=== PATIENT | female | born 1955 | race Caucasian/White ===

== ENCOUNTER 2020-06-13 08:36 | Day surgery (SDC) | payer MEDICARE, OTHER ==
[~2020-06-13 08:36] MED LIST: Lactated Ringers 1,000 ML IV SCH; Lidocaine 1%/Sod Bicarbonate in NS 8.4% 1 ML Syringe IDERM PRN; Sodium Chloride 0.9% 10 ML Syringe FLUSH PRN
--- NOTE | 2020-06-13 10:10 | PCM.PREANE ---
Preanesthetic Assessment - Procedure Proposed Procedure: sdcreening colonoscopy - Anesthesia/Transfusion/Family Hx Anesthesia History: Prior Anesthesia Without Reaction Family History of Anesthesia Reaction: No Transfusion History: No Prior Transfusion(s) - Review of Systems General: No Symptoms Pulmonary: No Symptoms Cardiovascular: No Symptoms Gastrointestinal: No Symptoms Neurological: No Symptoms Other: Reports: Thyroid Problems, Depression - Physical Assessment NPO Status Date: 06/13/20 NPO Status Time: 04:15 Vital Signs: Last Vital Signs Temp 97.2 F 06/13/20 08:40 Pulse 87 06/13/20 08:40 Resp 16 06/13/20 08:40 BP 129/68 06/13/20 08:40 Pulse Ox 96 06/13/20 08:40 Height: 5 ft 8 in Weight: 140.614 kg ASA Class: 3 Mental Status: Alert & Oriented x3 Airway Class: Mallampati = 1 Dentition: Reports: Normal Dentition, Partial Thyro-Mental Finger Breadths: 3 Mouth Opening Finger Breadths: 3 ROM/Head Extension: Full Lungs: Clear to Auscultation, Normal Respiratory Effort Cardiovascular: Regular Rate, Regular Rhythm - Allergies Allergies/Adverse Reactions: Allergies Allergy/AdvReac Type Severity Reaction Status Date / Time codeine Allergy Hives Verified 06/12/20 12:25 - Anesthesia Plan Beta Jaswinder: Metoprolol Med Last Dose Date: 06/13/20 Med Last Dose Time: 08:00 - Acknowledgements Anesthesia Type Planned: MAC Pt an Appropriate Candidate for the Planned Anesthesia: Yes Alternatives and Risks of Anesthesia Discussed w Pt/Guardian: Yes Pt/Guardian Understands and Agrees with Anesthesia Plan: Yes PreAnesthesia Questionnaire HEENT History: Reports: Allergic Rhinitis, Impaired Vision Cardiovascular History: Reports: High Cholesterol, Hypertension, Other (See Below) Other Cardiovascular History: heart catheterization x 2 -last one 7-8 years ago Respiratory History: Reports: None Gastrointestinal History: Reports: Colon Polyp Genitourinary History: Reports: None ENGINEERING AIDE History: Reports: None Musculoskeletal History: Reports: Arthritis Neurological History: Reports: None Psychiatric History: Reports: Anxiety, Depression Endocrine/Metabolic History: Reports: Diabetes, Type II (used to have it -), Hypothyroidism, Obesity/BMI 30+, Vitamin D Deficiency Hematologic History: Reports: None Immunologic History: Reports: None Oncologic (Cancer) History: Reports: None Dermatologic History: Reports: None - Past Surgical History Head Surgeries/Procedures: Reports: None HEENT Surgical History: Reports: Oral Surgery, Tonsillectomy Cardiovascular Surgical History: Reports: None Respiratory Surgical History: Reports: None GI Surgical History: Reports: Bariatric Procedure, Colonoscopy Female Surgical History: Reports: Hysterectomy, Tubal Ligation Male Surgical History: Reports: None Endocrine Surgical History: Reports: None Neurological Surgical History: Reports: None Musculoskeletal Surgical History: Reports: None Oncologic Surgical History: Reports: None Dermatological Surgical History: Reports: None - SUBSTANCE USE Smoking Status *Q: Never Smoker Tobacco Use Within Last Twelve Months: No Second Hand Smoke Exposure: No Days Per Week of Alcohol Use: 1 Number of Drinks Per Day: 1 Total Drinks Per Week: 1 Recreational Drug Use History: No - HOME MEDS Home Medications: Home Meds Ascorbic Acid [Vitamin C] 1,000 mg PO DAILY 06/12/20 [History] Biotin 10 mg PO BID 06/12/20 [History] Cholecalciferol (Vitamin D3) [Vitamin D3] 5,000 unit PO DAILY 06/12/20 [History] Evening [place] Oil 500 mg PO DAILY 06/12/20 [History] Folic Acid 0.8 mg PO DAILY 06/12/20 [History] Levothyroxine 75 mcg PO DAILY 06/12/20 [History] Metoprolol Tartrate [Lopressor] 12.5 mg PO BID 06/12/20 [History] Multivitamin [Daily Multiple Vitamin] 1 tab PO DAILY 06/12/20 [History] Sertraline HCl [Zoloft] 100 mg PO DAILY 06/12/20 [History] Vitamin E 100 unit PO DAILY 06/12/20 [History] atorvaSTATin Calcium [Lipitor] 40 mg PO DAILY 06/12/20 [History] - CURRENT (IN HOUSE) MEDS Current Meds: Current Medications Lactated Ringer's (Ringers, Lactated) 1,000 mls @ 125 mls/hr IV ASDIRECTED GORDO Stop: 06/13/20 23:00 Last Admin: 06/13/20 08:50 Dose: 125 mls/hr Documented by: Lidocaine/Sodium Bicarbonate (Buffered Lidocaine 1% In Ns 8.4%) 0.25 ml IDERM ONETIME PRN PRN Reason: Prior to IV Start Stop: 06/13/20 18:00 Last Admin: 06/13/20 08:50 Dose: 0.25 ml Documented by: Sodium Chloride (Saline Flush) 10 ml FLUSH ASDIRECTED PRN PRN Reason: Keep Vein Open Stop: 06/13/20 18:00
[2020-06-13] MEDS ORDERED: Propofol 200 MG/20 ML SDV ONE ×5 (10:14→11:28)
[2020-06-13] MEDS ORDERED: Lidocaine 1% 4 ML ONE (10:14)
[2020-06-13] MEDS ORDERED: fentaNYL 100 MCG/2 ML SDV ONE (10:14)
[2020-06-13] MEDS ORDERED: Midazolam 1 MG/ML 2 ML SDV ONE (10:15)
[2020-06-13] MEDS ORDERED: ePHEDrine Sulfate/0.9% NaCl/Pf 25 MG/5 ML SYRINGE IV ONE (10:43)
--- NOTE | 2020-06-13 11:43 | PCM.PRNOTE ---
- Free Text/Narrative Note: Date: 06/13/2020 Procedure: screening colonoscopy Endoscopist: Bg Currie MD Findings: Ileocecal valve visualized. Prep was fair. Detailed Report: The patient was taken to the endoscopy suite and placed in left lateral decubitus position. Time out was performed and monitored anesthesia care was initiated. There were small external hemorrhoidal skin tags on inspection of the anus. Digital rectal exam was unremarkable; anal papillae were palpated. The lubricated colonoscope was then inserted and advanced all the way to the cecum. The ileocecal valve was visualized. The prep was fair, with adherent particulate matter most notable in the proximal colon. On slow withdrawal of the scope, mucosal surfaces were carefully inspected. Three small sessile polyps were identified; one just distal to the ileocecal valve and two adjacent polyps in the sigmoid colon. These were removed with hot forceps, and tissue bases were fulgurated. In the transverse colon, a larger, well circumscribed submucosal mass was noted. a sample biopsy was obtained. There was no substantial diverticular disease or internal hemorrhoidal disease noted. There were some small submucosal vascular ectasias noted throughout the colon, most prominently featured in the rectum. Air was evacuated prior to removal of the scope. The patient tolerated the procedure well.
--- NOTE | 2020-06-13 11:47 | PCM48HPAN ---
Post Anesthesia Note - EVALUATION WITHIN 48HRS OF ANESTHETIC Vital Signs in Normal Range: Yes Patient Participated in Evaluation: Yes Respiratory Function Stable: Yes Airway Patent: Yes Cardiovascular Function Stable: Yes Hydration Status Stable: Yes Pain Control Satisfactory: Yes Nausea and Vomiting Control Satisfactory: Yes Mental Status Recovered: Yes Vital Signs: Last Vital Signs Temp 97.1 F 06/13/20 11:38 Pulse 81 06/13/20 11:38 Resp 20 06/13/20 11:38 BP 96/33 L 06/13/20 11:38 Pulse Ox 97 06/13/20 11:38
== END 2020-06-13 12:18 | disposition home or self-care (01) ==
LOC: JD.SDS 08:36
PROVIDERS: ATTEND Surgery
DX: Z12.11 Encounter for screening for malignant neoplasm of colon (principal); D17.5 Benign lipomatous neoplasm of intra-abdominal organs; D12.4 Benign neoplasm of descending colon; K64.4 Residual hemorrhoidal skin tags; F41.9 Anxiety disorder, unspecified; F32.9 Major depressive disorder, single episode, unspecified; I10 Essential (primary) hypertension; E11.9 Type 2 diabetes mellitus without complications; E78.00 Pure hypercholesterolemia, unspecified; E03.9 Hypothyroidism, unspecified; E66.9 Obesity, unspecified; Z88.5 Allergy status to narcotic agent; Z79.890 Hormone replacement therapy; Z79.899 Other long term (current) drug therapy; Z86.010 Personal history of colon polyps; Z98.890 Other specified postprocedural states; Z68.42 Body mass index [BMI] 45.0-49.9, adult
CPT/HCPCS: 45384; J0171; J2001; J2250; J2704; J3010; J7120; 00812

== ENCOUNTER 2021-03-17 10:46 | Day surgery (SDC) | payer MEDICARE, OTHER ==
--- NOTE | 2021-02-27 19:53 | PCM.EKG ---
#1 Interpretation EKG Date: 02/27/21 Time: 10:36 Rhythm: NSR Rate (Beats/Min): 75 [place]: Normal P-Wave: Enlarged (Left atrial hypertrophy pattern) QRS: Other (Near Q waves in leads III and aVF felt to be due to bundle branch block pattern. Incomplete right bundle branch block pattern) QT: Normal EKG Interpretation Comments: Abnormal ECG
[~2021-03-17 10:46] MED LIST changes: +Acetaminophen/HYDROcodone 325-5 MG Tab PO PRN; +Cyclobenzaprine 10 MG Tab PO PRN; +EPINEPHrine 1 MG/ML SDV ONE; +Lidocaine 1% 4 ML ONE; +Midazolam 1 MG/ML 2 ML SDV ONE; +Propofol 200 MG/20 ML SDV ONE; +Ropivacaine 0.5% 5 MG/ML 30 ML SDV ONE; +ceFAZolin 1 GM Vial ONE
--- NOTE | 2021-03-17 11:49 | PCM.PREANE ---
Preanesthetic Assessment - Procedure Proposed Procedure: right total knee arthroplasty with left knee aspiration and steroid injection - Anesthesia/Transfusion/Family Hx Anesthesia History: Prior Anesthesia Reaction Type of Anesthesia Reaction: Excessive Somnolence (with one colonoscopy in [place] 5 years ago, has had uneventful colonocopies since ) Family History of Anesthesia Reaction: No Transfusion History: No Prior Transfusion(s) Intubation History: Unknown - Review of Systems General: No Symptoms Pulmonary: No Symptoms Cardiovascular: No Symptoms Gastrointestinal: No Symptoms Neurological: No Symptoms Other: Reports: Thyroid Problems (hypothyroidism ), Depression, Anxiety - Physical Assessment NPO Status Date: 03/16/21 NPO Status Time: 18:30 Vital Signs: Last Vital Signs Temp 36.7 C 03/17/21 10:40 Pulse 63 03/17/21 10:40 Resp 18 03/17/21 10:40 BP 141/72 H 03/17/21 11:18 Pulse Ox 98 03/17/21 10:40 Height: 1.75 m Weight: 138.1 kg ASA Class: 3 Mental Status: Alert & Oriented x3 Dentition: Reports: Missing Tooth/Teeth (1 upper, 1 lower partial not in hospital ) ROM/Head Extension: Full Lungs: Clear to Auscultation, Normal Respiratory Effort Cardiovascular: Regular Rate, Regular Rhythm - Lab Values: Laboratory Last Values MRSA (PCR) Cancelled 02/25/21 16:17 - Allergies Allergies/Adverse Reactions: Allergies Allergy/AdvReac Type Severity Reaction Status Date / Time aspirin [From Percodan] Allergy Cannot Verified 03/17/21 11:40 Remember codeine Allergy Hives Verified 03/17/21 11:40 oxycodone [From Percodan] Allergy Cannot Verified 03/17/21 11:40 Remember - Blood Blood Available: No - Acknowledgements Anesthesia Type Planned: Spinal Pt an Appropriate Candidate for the Planned Anesthesia: Yes Alternatives and Risks of Anesthesia Discussed w Pt/Guardian: Yes Pt/Guardian Understands and Agrees with Anesthesia Plan: Yes PreAnesthesia Questionnaire HEENT History: Reports: Allergic Rhinitis, Cataract, Impaired Vision Cardiovascular History: Reports: High Cholesterol, Hypertension, Other (See Below) Other Cardiovascular History: heart catheterization x 2 -last one 7-8 years ago Respiratory History: Reports: Sleep Apnea Gastrointestinal History: Reports: Colon Polyp Genitourinary History: Reports: UTI, Recurrent CMO History: Reports: None Musculoskeletal History: Reports: Arthritis Neurological History: Reports: None Psychiatric History: Reports: Anxiety, Depression Endocrine/Metabolic History: Reports: Diabetes, Type II, Hypothyroidism, Obe sity/BMI 30+, Vitamin D Deficiency Hematologic History: Reports: Anemia, Folic Acid Immunologic History: Reports: None Oncologic (Cancer) History: Reports: None Dermatologic History: Reports: None - Infectious Disease History Infectious Disease History: Reports: None - Past Surgical History Head Surgeries/Procedures: Reports: None HEENT Surgical History: Reports: Oral Surgery, Tonsillectomy Cardiovascular Surgical History: Reports: None Respiratory Surgical History: Reports: None GI Surgical History: Reports: Bariatric Procedure, Colonoscopy Female Surgical History: Reports: Hysterectomy, Tubal Ligation Male Surgical History: Reports: None Endocrine Surgical History: Reports: None Neurological Surgical History: Reports: None Musculoskeletal Surgical History: Reports: None Oncologic Surgical History: Reports: None Dermatological Surgical History: Reports: None - SUBSTANCE USE Tobacco Use Status *Q: Never Tobacco User Recreational Drug Use History: No - HOME MEDS Home Medications: Home Meds Ascorbic Acid [Vitamin C] 1,000 mg PO DAILY 06/12/20 [History] Biotin 10 mg PO BID 06/12/20 [History] Cholecalciferol (Vitamin D3) [Vitamin D3] 5,000 unit PO DAILY 06/12/20 [History] Evening [place] Oil 500 mg PO DAILY 06/12/20 [History] Folic Acid 0.8 mg PO DAILY 06/12/20 [History] Levothyroxine 75 mcg PO DAILY 06/12/20 [History] Metoprolol Tartrate [Lopressor] 12.5 mg PO DAILY 06/12/20 [History] Multivitamin [Daily Multiple Vitamin] 1 tab PO DAILY 06/12/20 [History] Sertraline HCl [Zoloft] 150 mg PO DAILY 06/12/20 [History] Vitamin E 100 unit PO DAILY 06/12/20 [History] atorvaSTATin Calcium [Lipitor] 20 mg PO DAILY 06/12/20 [History] Fluticasone Propionate [Flonase] 1 dose NASBOTH DAILY 03/14/21 [History] Melatonin 10 mg PO BEDTIME PRN 03/14/21 [History] Pyridoxine HCl (Vitamin B6) [Vitamin B-6] 250 mg PO DAILY 03/14/21 [History] Vitamin B Complex 1 cap PO DAILY 03/14/21 [History] Acetaminophen/HYDROcodone [[place] 325-5 MG] 1 - 2 tab PO Q4H PRN #40 tablet 03/17/21 [Rx] Cyclobenzaprine [Flexeril] 10 mg PO BID PRN #20 tab 03/17/21 [Rx] Rivaroxaban [Xarelto] 10 mg PO DAILY #30 tab 03/17/21 [Rx] - CURRENT (IN HOUSE) MEDS Current Meds: Current Medications Hydrocodone Bitart/Acetaminophen (Acetaminophen/Hydrocodone 325-5 Mg Tab) 1 tab PO ONETIME PRN PRN Reason: Pain Stop: 03/17/21 18:00 Morphine Sulfate 8 mg/Epinephrine HCl 0.3 mg/Cefuroxime Sodium 750 mg/Ketorolac Tromethamine 30 mg/Sodium Chloride 7.9 ml 0 mg .XX ASDIRECTED PRN PRN Reason: Pain Stop: 03/17/21 15:00 Cyclobenzaprine HCl (Cyclobenzaprine 10 Mg Tab) 10 mg PO ONETIME PRN PRN Reason: muscle spasms Stop: 03/17/21 18:00 Lactated Ringer's (Ringers, Lactated) 1,000 mls @ 125 mls/hr IV ASDIRECTED GRODO Stop: 03/17/21 23:00 Last Admin: 03/17/21 11:15 Dose: 125 mls/hr Documented by: Lidocaine/Sodium Bicarbonate (Lidocaine 1%/Sod Bicarbonate In Ns 8.4% 1 Ml Syringe) 0.25 ml IDERM ONETIME PRN PRN Reason: Prior to IV Start Stop: 03/17/21 18:00 Last Admin: 03/17/21 11:15 Dose: 0.25 ml Documented by: Sodium Chloride (Sodium Chloride 0.9% 10 Ml Syringe) 10 ml FLUSH ASDIRECTED PRN PRN Reason: Keep Vein Open Stop: 03/17/21 18:00 Discontinued Medications Cefazolin Sodium (Cefazolin 1 Gm Vial) Confirm Administered Dose 2 gm .ROUTE .STK-MED ONE Stop: 03/17/21 10:37 Epinephrine HCl (Epinephrine 1 Mg/Ml Sdv) Confirm Administered Dose 1 mg .ROUTE .STK-MED ONE Stop: 03/17/21 07:29 Lidocaine HCl (Xylocaine-Mpf 1%) Confirm Administered Dose 4 mls @ as directed .ROUTE .STK-MED ONE Stop: 03/17/21 10:34 Midazolam HCl (Midazolam 1 Mg/Ml 2 Ml Sdv) Confirm Administered Dose 2 mg .ROUTE .[facility]-MED ONE Stop: 03/17/21 10:39 Propofol (Propofol 200 Mg/20 Ml Sdv) Confirm Administered Dose 200 mg .ROUTE .[facility]-MED ONE Stop: 03/17/21 10:34 Ropivacaine (Ropivacaine 0.5% 5 Mg/Ml 30 Ml Sdv) Confirm Administered [facility] 30 [facility] Stop: 03/17/21 07:29
[2021-03-17] MEDS ORDERED: ceFAZolin 1 GM Vial ONE (13:33)
[2021-03-17] MEDS ORDERED: Ondansetron 4 MG/2 ML SDV ONE (14:05)
[2021-03-17] MEDS ORDERED: Propofol 200 MG/20 ML SDV ONE ×4 (14:08→15:23)
[2021-03-17] MEDS: Bupivacaine 0.25% 10 ML SDV ONE ×3 (14:44→15:44)
[2021-03-17] MEDS: Triamcinolone Acetonide 40 MG/ML 1 ML SDV ONE ×3 (14:44→15:44)
[2021-03-17] MEDS: Morphine 8 MG, EPINEPHrine 0.3 MG, Cefuroxime 750 MG, Ketorolac 30 MG, Sodium Chloride ... PRN ×10 (15:00→15:11)
--- NOTE | 2021-03-17 15:00 | PCM.SN.2 ---
- Free Text/Narrative Note: Right selective femoral nerve block at the adductor canal for post-procedure pain control under US guidance requested by Dr. Magdaleno. Time Out: 1610 Start: 1610 End: 1620 Chart reviewed. Consent signed. Questions answered. Appropriate monitors applied/O2 at 2LPM nasal cannula. Time out performed. Right mid-shaft femur identified with ultrasound, scanning medially of femur, the femoral artery in the adductor canal visualized, and the femoral nerve located laterally to the artery. The skin was prepped lateral to the ultrasound probe with chlorahexadine times one. The 21ga 4 insulated block needle was inserted under direct ultrasound guidance into the adductor canal. 20mL of 0.5% ropivacaine with 1:200,000 epinephrine was injected circumferentially around the nerve with intermittent negative aspiration noted. Patient tolerated the procedure well. Sterile technique noted along with sterile gloves, mask, and sterile probe cover. See picture on progress note and vital signs on nurses notes. Block completed in PACU. Thank you, Jennifer Lynch CRNA
[2021-03-17] MEDS: Vancomycin 1 GM SDV ONE ×2 (15:02→15:20)
[2021-03-17] MEDS ORDERED: Lactated Ringers 1,000 ML ONE (15:25)
[2021-03-17] MEDS ORDERED: Ondansetron 4 MG/2 ML SDV IVPUSH PRN (15:51)
[2021-03-17] MEDS ORDERED: ePHEDrine 50 MG/ML SDV IVPUSH PRN (15:51)
[2021-03-17] MEDS ORDERED: diphenhydrAMINE 50 MG/ML SDV IVPUSH PRN (15:51)
[2021-03-17] MEDS ORDERED: fentaNYL 100 MCG/2 ML SDV IVPUSH PRN (15:51)
[2021-03-17] MEDS ORDERED: HYDROmorphone 0.5 MG/0.5 ML Syringe IVPUSH PRN (15:51)
--- NOTE | 2021-03-17 16:08 | PCM.POSTAN ---
POST ANESTHESIA ASSESSMENT - MENTAL STATUS Mental Status: Alert - VITAL SIGNS Vital Signs: Last Vital Signs Temp 36.7 C 03/17/21 16:00 Pulse 59 L 03/17/21 16:00 Resp 16 03/17/21 16:00 BP 105/52 L 03/17/21 16:00 Pulse Ox 99 03/17/21 16:00 - RESPIRATORY Respiratory Status: Respiratory Rate WNL, Airway Patent, O2 Saturation Stable, Supplemental Oxygen - CARDIOVASCULAR CV Status: Pulse Rate WNL, Blood Pressure Stable - GASTROINTESTINAL GI Status: No Symptoms - POST OP HYDRATION Hydration Status: Adequate & Stable
--- NOTE | 2021-03-17 16:43 | PCM48HPAN ---
Post Anesthesia Note - EVALUATION WITHIN 48HRS OF ANESTHETIC Vital Signs in Normal Range: Yes Patient Participated in Evaluation: Yes Respiratory Function Stable: Yes Airway Patent: Yes Cardiovascular Function Stable: Yes Hydration Status Stable: Yes Pain Control Satisfactory: Yes Nausea and Vomiting Control Satisfactory: Yes Mental Status Recovered: Yes Vital Signs: Last Vital Signs Temp 36.7 C 03/17/21 16:30 Pulse 50 L 03/17/21 16:30 Resp 15 03/17/21 16:30 BP 118/58 L 03/17/21 16:30 Pulse Ox 100 03/17/21 16:35
[2021-03-17] MEDS ORDERED: Cyclobenzaprine 10 MG Tab PO PRN (16:49)
[2021-03-17] MEDS ORDERED: Acetaminophen/HYDROcodone 325-5 MG Tab PO PRN (16:49)
--- NOTE | 2021-03-17 17:47 | CR ---
Right knee: AP and crosstable lateral views of the right knee were obtained. Comparison: Prior right knee CT study of 02/25/21. Knee prosthesis is noted. Components are aligned. Patellar prosthesis is also seen. Soft tissue air is noted. Underlying bony structures are intact. Impression: 1. Satisfactory postop radiographic appearance of recently placed right knee prosthesis. Diagnostic code #2
[2021-03-17] MEDS ORDERED: ceFAZolin 2 GM in Premix Bag 1 BAG IV SCH (22:00)
[2021-03-18] MEDS ORDERED: Levothyroxine 75 MCG Tab PO SCH (06:00)
[2021-03-18] MEDS ORDERED: Sertraline 50 MG Tab PO SCH (09:00)
[2021-03-18] MEDS ORDERED: atorvaSTATin 20 MG Tab PO SCH (09:00)
[2021-03-18] MEDS ORDERED: Cholecalciferol (Vitamin D3) 5,000 UNIT Cap PO SCH (09:00)
[2021-03-18] MEDS ORDERED: Metoprolol Tartrate 25 MG Tab PO SCH (09:00)
[2021-03-18] MEDS ORDERED: Folic Acid 1 MG Tab PO SCH (09:00)
[2021-03-18] MEDS ORDERED: Non-Formulary Medication 1 Each (Fluticasone Propionate [Flonase] 16 GM Bottle) NASBOTH SCH (09:00)
--- NOTE | 2021-03-30 21:54 | PCM.OPNOTE ---
- General Post-Op/Procedure Note Date of Surgery/Procedure: 03/17/21 Operative Procedure(s): right total knee arthroplasty with tanesha ramesh robotics and left knee corticosteroid injection Pre Op Diagnosis: bilateral knee osteoarthrosis Post-Op Diagnosis: Same Anesthesia Technique: Local, MAC, Spinal Primary Surgeon: Guevara Magdaleno Anesthesia Provider: Dinora Walden Case Supervisor: Fannie Zhou Case Supervisor: Jolie Perkins EBL in mLs: 5 Complications: None Condition: Good Free Text/Narrative:: 03/19 9mm 29x9
--- NOTE | 2021-03-30 23:24 | OR ---
DATE OF OPERATION: 03/17/2021 SURGEON: Guevara Magdaleno MD OPERATION PERFORMED: Right total knee arthroplasty with [place] Rito robotics and left knee corticosteroid injection. PREOPERATIVE DIAGNOSIS: Bilateral knee osteoarthrosis. POSTOPERATIVE DIAGNOSIS: Bilateral knee osteoarthrosis. ANESTHESIA: Local MAC with spinal. ANESTHESIA PROVIDER: Dinora Walden. CONVEX GRINDER: Fannie Zhou PA-C and Jolie Perkins LPN. ESTIMATED BLOOD LOSS: 5 mL. COMPLICATIONS: None. CONDITION: Stable. IMPLANT: 1. Karthikeyan size 5 cemented PS femur. 2. Karthikeyan size 5 cemented Tiff tibial baseplate. 3. [place] size 5 9 mm PS X3 polyethylene. 4. [place] size 29 x 9 mm cemented asymmetric patella. DESCRIPTION OF PROCEDURE: The patient was identified in the preoperative holding area. Proper site was marked and identified by the surgeon. The patient was taken back to the operating theater where after adequate anesthesia, the patient's right lower extremity had a nonsterile tourniquet applied and then sterilely prepped and draped in the usual sterile fashion. OR time-out was performed. Patient received 2 g of IV Ancef. Leg gabriel boot was then applied to the right lower extremity. It was then exsanguinated. Tourniquet was insufflated to 250 mmHg. Standard anterior incision was made and medial parapatellar arthrotomy was created. Deep fibers of the MCL were raised and anterior fat pad was resected. At this time, attention was turned to the patella. Patella measured 22, resected to a 13 for 29 x 9 mm patella. Drill holes were then drilled. Two 4-0 pins were then placed intra-incisionally for the [place] Rito robotic array on the femur and then 2 more placed in the tibia 3 fingerbreadths below the tibial tubercle. Karthikeyan Rito robotic array as well as checkpoints were applied. Hip center rotation was obtained. Medial and lateral malleoli were marked. At this time, 40 points were obtained off both femur and the tibia for the [place] Rito robotic plan. The patient's knee was brought to full extension. Varus and valgus stresses were applied and then 90 degrees flexion, again stresses were applied. [place] Rito robotic plan was made for this patient for 20 mm in both flexion and extension gaps secondary to flexion contracture. At this time, Karthikeyan Rito robotic straight saw blade was brought in, tibial cut, anterior femoral cut, anterior chamfer cut, and posterior femoral cut were all completed. Saw blade was then switched and the distal femoral cut and posterior chamfer cut were completed. All bony prominences were removed. Box cut was then completed at this time. Trial implants were placed. The patient had full extension and flexion. No varus-valgus instability was noted. No liftoff or loosening. Patella was tracking centrally. At this time, the tibia was stamped and drilled in proper rotation. Please note that the medial and lateral menisci were resected before this, as well as a large amount of posterior osteophytes. Once the trial implants were removed, all cut surfaces were irrigated with pulse lavage irrigation with Ancef and completely dried. Cement was mixed on the back table and when that was ready, the size 5 Tiff tibial baseplate was cemented in place, size [address], 9 mm PS X3 polyethylene was placed. The patient's knee was brought to full extension, excess cement was removed, and a 29 x 9 mm patella was cemented in place. The Advise Onlyo robotic array's checkpoints and pins were removed at this time as well. 1 L of pulse lavage irrigation with Ancef was irrigated through the knee along with 400 mL IrriSept irrigation. Periarticular injection was completed. Topical tranexamic acid and vancomycin powder were applied. A #2 barbed suture was used for closure of the medial parapatellar arthrotomy. 2-0 Vicryl and Stratafix were used for subcutaneous closure, and Prineo was used for skin closure. The patient tolerated the procedure well and was sent to the PACU in stable condition. Please note that after this procedure was completed under sterile technique, 2 mL of 40 mg Kenalog and 4 mL of 0.25% Marcaine were injected in the patient's left knee and she tolerated all procedures well. MMODAL /[id number]
== END 2021-03-17 22:05 | disposition home or self-care (01) ==
LOC: JD.SDS 10:46 → JD.MS 17:49 → JD.SDS 22:05
PROVIDERS: ATTEND Orthopaedic Surgery
DX: M17.0 Bilateral primary osteoarthritis of knee (principal); I10 Essential (primary) hypertension; E03.9 Hypothyroidism, unspecified; D75.89 Other specified diseases of blood and blood-forming organs; E66.9 Obesity, unspecified; E55.9 Vitamin D deficiency, unspecified; E11.9 Type 2 diabetes mellitus without complications; N39.0 Urinary tract infection, site not specified; G89.18 Other acute postprocedural pain; E78.00 Pure hypercholesterolemia, unspecified; Z98.890 Other specified postprocedural states; Z88.5 Allergy status to narcotic agent; Z88.8 Allergy status to other drugs, medicaments and biological substances; Z79.899 Other long term (current) drug therapy; Z68.42 Body mass index [BMI] 45.0-49.9, adult; Z79.890 Hormone replacement therapy
CPT/HCPCS: 20610; 27447; 73560; C1713; C1776; J0171; J0690; J0697; J1885; J2250; J2270; J2405; J2704; J2795; J3301; J3370; J3490; J7120; 01402; 64450; 76942; 87641

== ENCOUNTER 2021-06-23 11:45 | Emergency (ER) | payer MEDICARE, OTHER ==
[2021-06-23] MEDS ORDERED: Alum Hydrox/Mag Hydrox/Simeth 30 ML, Lidocaine 2% 15 ML PO ONE ×2 (12:15)
[2021-06-23] MEDS: Sodium Chloride 0.9% 10 ML Syringe FLUSH PRN ×2 (12:28→13:40)
--- NOTE | 2021-06-23 12:48 | EDM.PDOC ---
ED HPI GENERAL MEDICAL PROBLEM - General Chief Complaint: Chest Pain Stated Complaint: CHEST PAIN /SOB Time Seen by Provider: 06/23/21 11:47 Source of Information: Reports: Patient History Limitations: Reports: No Limitations - History of Present Illness INITIAL COMMENTS - FREE TEXT/NARRATIVE: 66-year-old female presents the emergency department today with complaints of chest pressure and throat tightening. Patient states that yesterday morning she woke with a headache which is unusual for her. She states that she relate around most of the morning and then decided to take a nap in the afternoon to see if the headache would go away. She states she woke from her nap in time for supper as she had not eaten or drank anything all day. She states when she woke she ate and drank and then felt better and states that headache resolved. She states that about 3 AM this morning when she was watching TV, she developed chest pressure and burning noted in her throat. She states that it felt like her throat was closing off. She states she was finally able to fall asleep about 5 AM this morning as the symptoms slightly resolved. She states that she then woke at about 8 AM this morning and felt better laid in bed till about 9 AM. She states she had not eaten or drank any breakfast and then went to the post office where she states she suddenly became flushed and dizzy. She states that she then went to her car and ate a bit of something and felt better and then returned home. Her daughter then told her that she needed to go to the emergency department to be evaluated. Of note, the patient states that she did have gastric bypass surgery about 4 years ago. She does have a history of hypertension, high cholesterol and hypothyroidism. She states that she does have a history of reflux however since she had her bypass surgery she has not had issues with it. She states that she becomes shortness of breath with any exertion such as walking across the parking lot to get to the emergency department this morning. She states that when she rests it resolves. Of note she is obese with a BMI of 47.1. Upper Chest Pain Score (Numeric/FACES): 8 - Related Data Allergies Allergy/AdvReac Type Severity Reaction Status Date / Time aspirin [From Percodan] Allergy Cannot Verified 06/23/21 12:16 Remember codeine Allergy Hives Verified 06/23/21 12:16 oxycodone [From Percodan] Allergy Cannot Verified 06/23/21 12:16 Remember Home Meds: Home Meds Ascorbic Acid [Vitamin C] 1,000 mg PO DAILY 06/12/20 [History] Biotin 10 mg PO BID 06/12/20 [History] Cholecalciferol (Vitamin D3) [Vitamin D3] 5,000 unit PO DAILY 06/12/20 [History] Evening [place] Oil 500 mg PO DAILY 06/12/20 [History] Folic Acid 0.8 mg PO DAILY 06/12/20 [History] Levothyroxine 75 mcg PO DAILY 06/12/20 [History] Metoprolol Tartrate [Lopressor] 12.5 mg PO DAILY 06/12/20 [History] Multivitamin [Daily Multiple Vitamin] 1 tab PO DAILY 06/12/20 [History] Sertraline HCl [Zoloft] 150 mg PO DAILY 06/12/20 [History] Vitamin E 100 unit PO DAILY 06/12/20 [History] atorvaSTATin Calcium [Lipitor] 20 mg PO DAILY 06/12/20 [History] Fluticasone Propionate [Flonase] 1 dose NASBOTH DAILY 03/14/21 [History] Melatonin 10 mg PO BEDTIME PRN 03/14/21 [History] Pyridoxine HCl (Vitamin B6) [Vitamin B-6] 250 mg PO DAILY 03/14/21 [History] Vitamin B Complex 1 cap PO DAILY 03/14/21 [History] Acetaminophen/HYDROcodone [[place] 325-5 MG] 1 - 2 tab PO Q4H PRN #40 tablet 03/17/21 [Rx] Cyclobenzaprine [Flexeril] 10 mg PO BID PRN #20 tab 03/17/21 [Rx] Rivaroxaban [Xarelto] 10 mg PO DAILY #30 tab 03/17/21 [Rx] Past Medical History HEENT History: Reports: Allergic Rhinitis, Cataract, Impaired Vision Cardiovascular History: Reports: High Cholesterol, Hypertension, Other (See Below) Other Cardiovascular History: heart catheterization x 2 -last one 7-8 years ago Respiratory History: Reports: Sleep Apnea Gastrointestinal History: Reports: Colon Polyp Genitourinary History: Reports: UTI, Recurrent ENTERPRISE APPLICATIONS MANAGER History: Reports: None Musculoskeletal History: Reports: Arthritis Neurological History: Reports: None Psychiatric History: Reports: Anxiety, Depression Endocrine/Metabolic History: Reports: Diabetes, Type II, Hypothyroidism, Obesity/BMI 30+, Vitamin D Deficiency Hematologic History: Reports: Anemia, Folic Acid Immunologic History: Reports: None Oncologic (Cancer) History: Reports: None Dermatologic History: Reports: None - Infectious Disease History Infectious Disease History: Reports: None - Past Surgical History Head Surgeries/Procedures: Reports: None HEENT Surgical History: Reports: Oral Surgery, Tonsillectomy Cardiovascular Surgical History: Reports: None Respiratory Surgical History: Reports: None GI Surgical History: Reports: Bariatric Procedure, Colonoscopy Female Surgical History: Reports: Hysterectomy, Tubal Ligation Endocrine Surgical History: Reports: None Neurological Surgical History: Reports: None Musculoskeletal Surgical History: Reports: None Oncologic Surgical History: Reports: None Dermatological Surgical History: Reports: None Social & Family History - Tobacco Use Tobacco Use Status *Q: Never Tobacco User - Caffeine Use Caffeine Use: Reports: Coffee, Tea - Recreational Drug Use Recreational Drug Use: No ED ROS GENERAL - Review of Systems Review Of Systems: Comprehensive ROS is negative, except as noted in HPI. ED EXAM, GENERAL - Physical Exam Exam: See Below Exam Limited By: No Limitations General Appearance: Alert, WD/WN, No Apparent Distress Ears: Normal External Exam, Hearing Grossly Normal Nose: Normal Inspection Throat/Mouth: Normal Inspection, Normal Lips, Normal Voice, No Airway Compromise Head: Atraumatic Neck: Normal Inspection, Supple Respiratory/Chest: No Respiratory Distress, Lungs Clear, No Accessory Muscle Use, Chest Non-Tender. No: Normal Breath Sounds (Decreased due to body habitus) Cardiovascular: Normal Peripheral Pulses, Regular Rate, Rhythm, No Edema, No Murmur Peripheral Pulses: 2+: Radial (L), Radial (R) GI/Abdominal: Normal Bowel Sounds, Soft, Non-Tender, No Distention (Female) Exam: Deferred Rectal (Female) Exam: Deferred Back Exam: Normal Inspection Extremities: Normal Inspection, Normal Range of Motion, Non-Tender, No Pedal Edema, Normal Capillary Refill Neurological: Alert, Oriented, Normal Cognition Psychiatric: Normal Affect, Normal Mood Skin Exam: Warm, Dry, Intact, Normal Color, No Rash Lymphatic: No Adenopathy #1 Interpretation EKG Date: 06/23/21 Time: 11:53 Rhythm: NSR Rate (Beats/Min): 91 [place]: Normal P-Wave: Present QRS: RBBB ST-T: Normal QT: Normal EKG Interpretation Comments: Per Dr. Choe interpretation: Sinus rhythm at 91 bpm, right bundle branch block, ST depression in the precordial leads with inverted T's isoelectric on V6 Course - Vital Signs Text/Narrative:: As stated above, patient with new onset chest pressure with feeling as though her throat is burning and closing off. She states this started at about 3 AM this morning and then resolved a couple hours later. However she did have an episode of diaphoresis and shortness of breath when at the post office today. Upon assessment the patient is awake alert and in no distress. She denies any chest pressure or burning at this time. However at the time of my assessment when having her take a deep breath she states that her throat is burning. I have ordered a full cardiac work-up on the patient to include labs, portable chest x-ray and an EKG. I will also give her a GI cocktail to see if this helps to resolve her discomfort. Last Recorded V/S: Last Vital Signs Temp 98.5 F 06/23/21 11:48 Pulse 74 06/23/21 13:46 Resp 16 06/23/21 13:46 BP 114/75 06/23/21 13:46 Pulse Ox 94 L 06/23/21 13:46 - Orders/Labs/Meds Orders: Active Orders 24 hr Category Date Time Status EKG Documentation Completion [RC] STAT Care 06/23/21 12:17 Active Sodium Chloride 0.9% [Normal Saline] 100 ml Med 06/23/21 13:30 Active IV ASDIRECTED Sodium Chloride 0.9% [Saline Flush] Med 06/23/21 12:15 Active 10 ml FLUSH ASDIRECTED PRN Saline Lock Insert [OM.PC] Stat Oth 06/23/21 12:15 Ordered Medication Orders Sodium Chloride (Normal Saline) 100 mls @ 50 mls/hr IV ASDIRECTED GORDO Last Admin: 06/23/21 13:41 Dose: 50 mls/hr Documented by: MAR Sodium Chloride (Sodium Chloride 0.9% 10 Ml Syringe) 10 ml FLUSH ASDIRECTED PRN PRN Reason: Keep Vein Open Last Admin: 06/23/21 13:40 Dose: 10 ml Documented by: Admin: 06/23/21 12:28 Dose: 10 ml Documented by: ELI Labs: Laboratory Tests 0806/23/21 06/23/21 Range/Units 12:00 12:00 12:00 WBC 6.04 (3.98-10.04) K/mm3 RBC 4.48 (3.98-5.22) M/mm3 Hgb 14.3 (11.2-15.7) gm/dl Hct 44.0 (34.1-44.9) % MCV 98.2 H (79.4-94.8) fl MCH 31.9 (25.6-32.2) pg MCHC 32.5 (32.2-35.5) g/dl RDW Std Deviation 45.3 (36.4-46.3) fL Plt Count 165 L (182-369) K/mm3 MPV 11.7 (9.4-12.3) fl Neut % (Auto) 72.9 H (34.0-71.1) % Lymph % (Auto) 19.0 L (19.3-51.7) % [place] % (Auto) 5.8 (4.7-12.5) % Eos % (Auto) 1.8 (0.7-5.8) Baso % (Auto) 0.3 (0.1-1.2) % Neut # (Auto) 4.40 (1.56-6.13) K/mm3 Lymph # (Auto) 1.15 L (1.18-3.74) K/mm3 [place]hing # (Auto) 0.35 (0.24-0.36) K/mm3 Eos # (Auto) 0.11 (0.04-0.36) K/mm3 Baso # (Auto) 0.02 (0.01-0.08) K/mm3 D-Dimer, Quantitative 1.06 H (0.19-0.50) mg/L Sodium 141 (136-145) mEq/L Potassium 3.8 (3.5-5.1) mEq/L Chloride 104 (98-107) mEq/L Carbon Dioxide 27 (21-32) mEq/L Anion Gap 13.8 (5-15) BUN 16 (7-18) mg/dL Creatinine 0.9 (0.55-1.02) mg/dL Est Cr Clr Drug Dosing 60.60 mL/min Estimated GFR (MDRD) > 60 (>60) mL/min BUN/Creatinine Ratio 17.8 (14-18) Glucose 185 H (70-99) mg/dL Calcium 8.3 L (8.5-10.1) mg/dL Magnesium 1.7 L (1.8-2.4) mg/dL Total Bilirubin 0.6 (0.2-1.0) mg/dL AST 31 (15-37) U/L ALT 37 (14-59) U/L Alkaline Phosphatase 109 (46-116) U/L Troponin I < 0.017 (0.00-0.056) ng/mL C-Reactive Protein 0.5 (<1.0) mg/dL Total Protein 6.7 (6.4-8.2) g/dl Albumin 3.3 L (3.4-5.0) g/dl Globulin 3.4 gm/dL Albumin/Globulin Ratio 1.0 (1-2) TSH 3rd Generation 2.596 (0.358-3.74) uIU/mL Meds: Medications Generic Name Dose Route Start Last Admin Trade Name Russel PRN Reason Stop Dose Admin Sodium Chloride 100 mls @ 50 mls/hr 06/23/21 13:30 06/23/21 13:41 Normal Saline IV 50 mls/hr ASDIRECTED GORDO Administration Sodium Chloride 10 ml 06/23/21 12:15 06/23/21 13:40 Sodium Chloride 0.9% 10 Ml Syringe FLUSH 10 ml ASDIRECTED PRN Administration Keep Vein Open Discontinued Medications Generic Name Dose Route Start Last Admin Trade Name Russel PRN Reason Stop Dose Admin Al Hydroxide/Mg Hydroxide 30 0 ml 06/23/21 12:15 06/23/21 12:28 ml/ Lidocaine HCl 15 ml PO 06/23/21 12:16 45 ml ONETIME ONE Administration Iopamidol 100 ml 06/23/21 13:28 06/23/21 13:40 Iopamidol 755 Mg/Ml 100 Ml Bottle IVPUSH 06/23/21 13:29 100 ml ONETIME ONE Administration Iopamidol 50 ml 06/23/21 13:28 06/23/21 13:40 Iopamidol 755 Mg/Ml 50 Ml Bottle IVPUSH 06/23/21 13:29 50 ml ONETIME ONE Administration Sodium Chloride 10 ml 06/23/21 13:28 Sodium Chloride 0.9% 10 Ml Sdv FLUSH 06/23/21 13:29 ONETIME ONE - Re-Assessments/Exams Free Text/Narrative Re-Assessment/Exam: 06/23/21 13:36 Hematology reveals a WBC of 6.04, hemoglobin 14.3, hematocrit 44.0, platelet count 165 D-dimer 1.06 Chemistry reveals a sodium of 141, potassium 3.8, chloride 104, carbon dioxide 27, anion gap 13.8, BUN 16, creatinine 0.9, GFR greater than 60, glucose 185, calcium 8.3, magnesium 1.7, troponin less than 0.017, C-reactive protein 0.5, TSH 2.596 Due to the patient having new onset shortness of breath and diaphoresis and having an elevated D-dimer, have elected to order a CTA of the lungs on the patient. 06/23/21 13:42 Radiologist impression portable view of the chest: 1. Nothing acute is seen on portable chest x-ray. 06/23/21 14:[address] Chest: 1. No findings of pulmonary embolism are seen. 2. Other non acute findings are seen. Pt states that the GI coctail did not really have an effect of the discomfort, however she states that it has resolved at the time of my reassessment. Pt will be discharged to home with recommendations that she follow up with Dr. Lindsay at her next available appt. Departure - Departure Time of Disposition: 14:43 Disposition: Home, Self-Care 01 Condition: Good Clinical Impression: Atypical chest pain Instructions: Nonspecific Chest Pain, Adult, [id number] Referrals: Katelynn Lindsay MD [Primary Care Provider] - Forms: ED Department Discharge Additional Instructions: You were seen in the ED with complaints of chest pressure and the sensation that your throat is closing. Full cardiac workup was completed which included, labs, EKG, and a chest xray. Labs showed an elevated ddimer which could indicate a blood clot in your lungs so a CT scan of the lungs was completed. This was negative. You did not have a heart attack and you do not have a blood clot in your lungs. Recommend that you follow up with Dr. Lindsay in the next week for further evaluation. Should your condition worsen or change, do not hesitate returning to the ED. Sepsis Event Note (ED) - Evaluation Sepsis Screening Result: No Definite Risk - Focused Exam Vital Signs: Vital Signs Temp Pulse Resp BP Pulse Ox 06/23/21 13:46 74 16 114/75 94 L 06/23/21 11:48 98.5 F 83 16 123/77 98 - My Orders Last 24 Hours: My Active Orders 06/23/21 12:15 Sodium Chloride 0.9% [Saline Flush] 10 ml FLUSH ASDIRECTED PRN Saline Lock Insert [OM.PC] Stat 06/23/21 12:17 EKG Documentation Completion [RC] STAT 06/23/21 13:30 Sodium Chloride 0.9% [Normal Saline] 100 ml IV ASDIRECTED - Assessment/Plan Last 24 Hours: My Active Orders 06/23/21 12:15 Sodium Chloride 0.9% [Saline Flush] 10 ml FLUSH ASDIRECTED PRN Saline Lock Insert [OM.PC] Stat 06/23/21 12:17 EKG Documentation Completion [RC] STAT 06/23/21 13:30 Sodium Chloride 0.9% [Normal Saline] 100 ml IV ASDIRECTED
[2021-06-23] MEDS ORDERED: Sodium Chloride 0.9% 10 ML SDV FLUSH ONE (13:28)
[2021-06-23] MEDS ORDERED: Iopamidol 755 Mg/ML 100 ML Bottle IVPUSH ONE (13:28)
[2021-06-23] MEDS ORDERED: Iopamidol 755 MG/ML 50 ML Bottle IVPUSH ONE (13:28)
[2021-06-23] MEDS ORDERED: Sodium Chloride 0.9% 100 ML IV SCH (13:30)
--- NOTE | 2021-06-23 13:36 | CR ---
Chest: Portable view of the chest was obtained. Comparison: No prior chest imaging is available. Heart size is normal. Tortuous thoracic aorta is seen. Lungs are clear with no acute parenchymal change. No definite acute osseous abnormality is appreciated. Impression: 1. Nothing acute is seen on portable chest x-ray. Diagnostic code #1
--- NOTE | 2021-06-23 14:13 | CT ---
CT chest Technique: Multiple axial sections were obtained from above the dome of the diaphragm inferiorly through the pubic symphysis. Intravenous contrast was utilized. Study has been performed as a pulmonary angiogram protocol. Findings: Pulmonary arteries are fairly well opacified. No filling defects are seen to indicate pulmonary embolism. Thoracic aorta shows no aneurysm. Mild coronary artery calcification is seen. Mediastinum shows no adenopathy. No axillary adenopathy is seen. No pericardial thickening is seen. Large gallstone is seen within the gallbladder measuring 3.7 cm. Lungs show no definite acute parenchymal change. Small lobulation of the left hemidiaphragm is seen. Bone window settings were reviewed which show slight degenerative change scattered throughout the spine. No definite acute osseous abnormality is appreciated. Impression: 1. No findings of pulmonary embolism are seen. 2. Other findings which are nonacute as described above. Diagnostic code #2
== END 2021-06-23 14:58 | disposition home or self-care (01) ==
LOC: JD.ED 11:45
DX: R07.89 Other chest pain (principal); E78.00 Pure hypercholesterolemia, unspecified; I10 Essential (primary) hypertension; E11.9 Type 2 diabetes mellitus without complications; E03.9 Hypothyroidism, unspecified; E66.9 Obesity, unspecified; Z68.42 Body mass index [BMI] 45.0-49.9, adult; Z79.899 Other long term (current) drug therapy; Z88.8 Allergy status to other drugs, medicaments and biological substances; Z88.5 Allergy status to narcotic agent
CPT/HCPCS: 36415; 71045; 71275; 80053; 83735; 84443; 84484; 85025; 85379; 86140; 93005; 99285; A9270; Q9967; 93010; 99284

== ENCOUNTER 2021-08-11 09:30 | Day surgery (SDC) | payer MEDICARE, OTHER ==
--- NOTE | 2021-08-11 08:36 | PCM.PREANE ---
Preanesthetic Assessment - Procedure Proposed Procedure: Left total knee arthroplasty - Anesthesia/Transfusion/Family Hx Anesthesia History: Prior Anesthesia Reaction Family History of Anesthesia Reaction: No Transfusion History: No Prior Transfusion(s) - Review of Systems General: No Symptoms Pulmonary: No Symptoms Cardiovascular: No Symptoms Gastrointestinal: No Symptoms Neurological: No Symptoms Other: Reports: Easy Bruising, Diabetes (Patient stated that she used to have diabetes but has resolved), Thyroid Problems (Hypothyroidism), Depression - Physical Assessment NPO Status Date: 08/10/21 NPO Status Time: 18:00 Vital Signs: BP 150/88 HR 63 97.3 RR 18 96% Height: 1.75 m Weight: 136 kg ASA Class: 3 Mental Status: Alert & Oriented x3 Airway Class: Mallampati = 2 Thyro-Mental Finger Breadths: 3 ROM/Head Extension: Full Lungs: Clear to Auscultation, Normal Respiratory Effort Cardiovascular: Regular Rate, Regular Rhythm, No Murmurs - Imaging/EKG Impressions: Chest x-ray from 07/28/21: Nothing acute is seen on 2 view chest x-ray EKG from 07/28/21: NSR HR 65, RBBB that is chronic, inverted T waves in precordial leads that are also chronic, no ST changes, unremarkable EKG - Allergies Allergies/Adverse Reactions: Allergies Allergy/AdvReac Type Severity Reaction Status Date / Time aspirin [From Percodan] Allergy Cannot Verified 08/08/21 09:06 Remember codeine Allergy Hives Verified 08/08/21 09:06 oxycodone [From Percodan] Allergy Cannot Verified 08/08/21 09:06 Remember - Blood Blood Available: No Product(s) Available: None - Anesthesia Plan Beta Jaswinder: Metoprolol Med Last Dose Date: 08/11/21 Med Last Dose Time: 07:30 - Acknowledgements Anesthesia Type Planned: General Anesthesia, Spinal Pt an Appropriate Candidate for the Planned Anesthesia: Yes Alternatives and Risks of Anesthesia Discussed w Pt/Guardian: Yes Pt/Guardian Understands and Agrees with Anesthesia Plan: Yes PreAnesthesia Questionnaire HEENT History: Reports: Allergic Rhinitis, Cataract, Impaired Vision Cardiovascular History: Reports: High Cholesterol, Hypertension, Other (See Below) Other Cardiovascular History: heart catheterization x 2 -last one 7-8 years ago Respiratory History: Reports: Sleep Apnea Gastrointestinal History: Reports: Colon Polyp Other Gastrointestinal History: Folic acid deficiency; vitamin D deficiency Genitourinary History: Reports: UTI, Recurrent EXPERIMENTAL PSYCHOLOGIST History: Reports: None Musculoskeletal History: Reports: Arthritis Neurological History: Reports: None Psychiatric History: Reports: Anxiety, Depression Endocrine/Metabolic History: Reports: Diabetes, Type II ("Patient states she lost 100 lbs several years ago and was able to reverse her diabetes" per pre-op note.), Hypothyroidism, Obesity/BMI 30+, Vitamin D Deficiency Hematologic History: Reports: Anemia, Folic Acid Immunologic History: Reports: None Oncologic (Cancer) History: Reports: None Dermatologic History: Reports: None - Infectious Disease History Infectious Disease History: Reports: None - Past Surgical History Head Surgeries/Procedures: Reports: None HEENT Surgical History: Reports: Adenoidectomy, Oral Surgery, Tonsillectomy Cardiovascular Surgical History: Reports: None Respiratory Surgical History: Reports: None GI Surgical History: Reports: Bariatric Procedure (Gastric bypass surgery), Colonoscopy Female Surgical History: Reports: Hysterectomy, Tubal Ligation Male Surgical History: Reports: None Endocrine Surgical History: Reports: None Neurological Surgical History: Reports: None Musculoskeletal Surgical History: Reports: Knee Replacement Oncologic Surgical History: Reports: None Dermatological Surgical History: Reports: None - Past Imaging History Past Imaging History: Reports: Other (See Below) (History of heart catheterization: EF 60%, normal coronary arteries) - SUBSTANCE USE Tobacco Use Status *Q: Never Tobacco User Tobacco Use Within Last Twelve Months: No Second Hand Smoke Exposure: No Days Per Week of Alcohol Use: 0 Number of Drinks Per Day: 0 Total Drinks Per Week: 0 Recreational Drug Use History: No - HOME MEDS Home Medications: Home Meds Ascorbic Acid [Vitamin C] 1,000 mg PO DAILY 06/12/20 [History] Biotin 10 mg PO BID 06/12/20 [History] Cholecalciferol (Vitamin D3) [Vitamin D3] 5,000 unit PO DAILY 06/12/20 [History] Evening [place] Oil 500 mg PO DAILY 06/12/20 [History] Folic Acid 0.8 mg PO DAILY 06/12/20 [History] Levothyroxine 75 mcg PO DAILY 06/12/20 [History] Metoprolol Tartrate [Lopressor] 12.5 mg PO DAILY 06/12/20 [History] Multivitamin [Daily Multiple Vitamin] 1 tab PO DAILY 06/12/20 [History] Sertraline HCl [Zoloft] 150 mg PO DAILY 06/12/20 [History] Vitamin E 100 unit PO DAILY 06/12/20 [History] atorvaSTATin Calcium [Lipitor] 20 mg PO DAILY 06/12/20 [History] Fluticasone Propionate [Flonase] 1 dose NASBOTH DAILY 03/14/21 [History] Melatonin 10 mg PO BEDTIME PRN 03/14/21 [History] Pyridoxine HCl (Vitamin B6) [Vitamin B-6] 250 mg PO DAILY 03/14/21 [History] Vitamin B Complex 1 cap PO DAILY 03/14/21 [History] Calcium Carbonate [Calcium] 600 mg PO DAILY 08/08/21 [History] - CURRENT (IN HOUSE) MEDS Current Meds: Current Medications Acetaminophen (Acetaminophen 325 Mg Tab) 975 mg PO ONETIME GORDO Stop: 08/11/21 16:00 Morphine Sulfate 8 mg/Epinephrine HCl 0.3 mg/Cefuroxime Sodium 750 mg/Ketorolac Tromethamine 30 mg/Sodium Chloride 7.9 ml 0 mg .XX ASDIRECTED PRN PRN Reason: Pain Stop: 08/11/21 16:00 Lactated Ringer's (Ringers, Lactated) 1,000 mls @ 125 mls/hr IV ASDIRECTED GORDO Stop: 08/11/21 23:00 Lidocaine/Sodium Bicarbonate (Lidocaine 1%/Sod Bicarbonate In Ns 8.4% 1 Ml Syringe) 0.25 ml IDERM ONETIME PRN PRN Reason: Prior to IV Start Stop: 08/11/21 18:00 Oxycodone HCl (Oxycodone Er 10 Mg Tab.Er) 10 mg PO ONETIME GORDO Pregabalin (Pregabalin 25 Mg Cap) 50 mg PO ONETIME GORDO Stop: 08/11/21 16:00 Sodium Chloride (Sodium Chloride 0.9% 10 Ml Syringe) 10 ml FLUSH ASDIRECTED PRN PRN Reason: Keep Vein Open Stop: 08/11/21 18:00
[~2021-08-11 09:30] MED LIST changes: +Acetaminophen 325 MG Tab PO SCH; -EPINEPHrine 1 MG/ML SDV ONE; -Lidocaine 1% 4 ML ONE; -Midazolam 1 MG/ML 2 ML SDV ONE; +Pregabalin 25 MG Cap PO SCH; -Propofol 200 MG/20 ML SDV ONE; -Ropivacaine 0.5% 5 MG/ML 30 ML SDV ONE; -ceFAZolin 1 GM Vial ONE; +oxyCODONE ER 10 MG TAB.ER PO SCH
[2021-08-11] MEDS ORDERED: Vancomycin 1 GM SDV ONE (09:37)
[2021-08-11] MEDS ORDERED: Propofol 200 MG/20 ML SDV ONE ×5 (09:42→11:50)
[2021-08-11] MEDS ORDERED: fentaNYL 100 MCG/2 ML SDV ONE (09:42)
[2021-08-11] MEDS ORDERED: Midazolam 1 MG/ML 2 ML SDV ONE (09:42)
[2021-08-11] MEDS ORDERED: ceFAZolin 1 GM Vial ONE (09:46)
[2021-08-11] MEDS ORDERED: EPINEPHrine 1 MG/ML SDV ONE (10:15)
[2021-08-11] MEDS ORDERED: Ropivacaine 0.5% 5 MG/ML 30 ML SDV ONE (10:15)
[2021-08-11] MEDS ORDERED: Albuterol 0.083% 2.5 MG/3 ML Neb Soln NEB ONE (11:00)
[2021-08-11] MEDS ORDERED: ePHEDrine 50 MG/ML SDV ONE (11:12)
[2021-08-11] MEDS ORDERED: Lactated Ringers 1,000 ML ONE (11:14)
[2021-08-11] MEDS: Morphine 8 MG, EPINEPHrine 0.3 MG, Cefuroxime 750 MG, Ketorolac 30 MG, Sodium Chloride ... PRN ×10 (12:18→12:25)
[2021-08-11] MEDS ORDERED: fentaNYL 100 MCG/2 ML SDV IVPUSH PRN (13:28)
[2021-08-11] MEDS ORDERED: HYDROmorphone 0.5 MG/0.5 ML Syringe IVPUSH PRN (13:28)
[2021-08-11] MEDS ORDERED: Ondansetron 4 MG/2 ML SDV IVPUSH PRN (13:28)
--- NOTE | 2021-08-11 13:29 | PCM.POSTAN ---
POST ANESTHESIA ASSESSMENT - MENTAL STATUS Mental Status: Alert, Oriented - VITAL SIGNS Vital Signs: Last Vital Signs Temp 97.3 F 08/11/21 10:10 Pulse 63 08/11/21 10:10 Resp 18 08/11/21 10:10 BP 150/88 H 08/11/21 10:10 Pulse Ox 96 08/11/21 10:10 1301: 132/68 HR 68 RR 17 97.2 98%RA - RESPIRATORY Respiratory Status: Respiratory Rate WNL, Airway Patent, O2 Saturation Stable - CARDIOVASCULAR CV Status: Pulse Rate WNL, Blood Pressure Stable - GASTROINTESTINAL GI Status: No Symptoms - PAIN Pain Score: 0 - POST OP HYDRATION Hydration Status: Adequate & Stable
--- NOTE | 2021-08-11 13:32 | PCM.PRNOTE ---
- Free Text/Narrative Note: Left selective femoral nerve block at the adductor canal for post-procedure pain control under US guidance requested by Dr. Magdaleno. Time Out: 1312 Start: 1313 End: 1320 Chart reviewed. Consent signed. Questions answered. Appropriate monitors applied. Time out performed. Left mid-shaft femur identified with ultrasound, scanning medially of femur, the femoral artery in the adductor canal visualized, and the femoral nerve located laterally to the artery. The skin was prepped lateral to the ultrasound probe with chlorahexadine times two. The 21ga 4 insulated block needle was inserted under direct ultrasound guidance into the adductor canal. 20mL of 0.5% ropivacaine with 1:200,000 epinephrine was injected circumferentially around the nerve with intermittent negative aspiration noted. Patient tolerated the procedure well. Sterile technique noted along with sterile gloves, mask, and sterile probe cover. See picture on progress note and vital signs on nurses notes. Block completed in PACU. Mago Mirza, COMMUNICATIONS ELECTRICIAN SUPERVISOR
--- NOTE | 2021-08-11 13:58 | PCM48HPAN ---
Post Anesthesia Note - EVALUATION WITHIN 48HRS OF ANESTHETIC Vital Signs in Normal Range: Yes Patient Participated in Evaluation: Yes Respiratory Function Stable: Yes Airway Patent: Yes Cardiovascular Function Stable: Yes Hydration Status Stable: Yes Pain Control Satisfactory: Yes Nausea and Vomiting Control Satisfactory: Yes Mental Status Recovered: Yes Vital Signs: Last Vital Signs Temp 97.0 F 08/11/21 13:15 Pulse 63 08/11/21 10:10 Resp 14 08/11/21 13:45 BP 121/72 08/11/21 13:45 Pulse Ox 97 08/11/21 13:45
--- NOTE | 2021-08-11 14:25 | CR ---
Left knee: AP and crosstable lateral views of the left knee were obtained. Comparison: Prior left knee CT study of 07/29/21. Knee prosthesis is noted. Patellar prosthesis is also seen. No acute fracture or other bony abnormality is appreciated. Impression: 1. Satisfactory postoperative radiographic appearance of recently placed right knee prostheses. Diagnostic code #2
--- NOTE | 2021-08-26 06:56 | PCM.OPNOTE ---
- General Post-Op/Procedure Note Date of Surgery/Procedure: 08/11/21 Operative Procedure(s): left total knee arthroplasty with tanesha ramesh robotics Pre Op Diagnosis: left knee osteoarthrosis Post-Op Diagnosis: Same Anesthesia Technique: Local, MAC, Spinal Primary Surgeon: Guevara Magdaleno Anesthesia Provider: Diana Chowdary Ballet Professor: Fannie Zhou Ballet Professor: Jolie Perkins EBBernice in mLs: 5 Complications: None Condition: Good Free Text/Narrative:: 03/18 10 29x9
--- NOTE | 2021-08-26 07:38 | OR ---
DATE OF OPERATION: 08/11/2021 SURGEON: Guevara Magdaleno MD OPERATION PERFORMED: Left total knee arthroplasty with [place] [employer] robotics. PREOPERATIVE DIAGNOSIS: Left knee osteoarthrosis. POSTOPERATIVE DIAGNOSIS: Left knee osteoarthrosis. ANESTHESIA: Local MAC with spinal. ANESTHESIA PROVIDER: Diana Chowdary ASSISTANTS: Fannie Zhou PA-C and Jolie Perkins LPN ESTIMATED BLOOD LOSS: 5 mL. COMPLICATIONS: None. CONDITION: Stable. IMPLANTS: 1. Karthikeyan size 5 mm cemented PS femur. 2. [place] size 4 mm cemented Clio tibial base plate. 3. Karthikeyan size 4, 10 mm PS X3 polyethylene insert. 4. [place] size 29 x 9 mm cemented asymmetric patella. DESCRIPTION OF PROCEDURE: The patient was identified in the preop holding area. Proper site was marked and identified by the surgeon. The patient was taken back to the operating theater where after adequate anesthesia, the patient's left lower extremity had a nonsterile tourniquet applied and it was sterilely prepped and draped in the usual sterile fashion. OR time-out was performed. The patient received 2 g IV Ancef . Leg gabriel was then applied to the left lower extremity. At this time, the left lower extremity was exsanguinated. Tourniquet was insufflated to 250 mmHg . Standard anterior incision was made. Medial parapatellar arthrotomy was created. Deep fibers of the MCL were raised as well as anterior fat pad was resected. Attention was turned to the patella. Patella measured 20 mm; it was resected to 13 mm for a 29 x 9 mm patella. Drill holes were then drilled. Attention was then turned to the femur. Two 4.0 pins were placed intra- incisionally for the Karthikeyan Rito robotic array and then 2 more were placed on the tibia 3 fingerbreadths below the tibial tubercle. The Karthikeyan Rito robotic arrays were placed on both the femur and the tibia then at this time as well as checkpoints on the femur and tibia. Hip center rotation was then obtained. The medial and lateral malleoli were marked. At this time, 40 points were obtained off the femur and the tibia for the Karthikeyan Rito robotic plan. The patient's knee was brought to full extension. Varus and valgus stresses were applied and then into 90 degrees of flexion with a curved osteotome. Varus and valgus stresses were applied. At this time, [employer] robotic plan was done to 20 mm gaps in both flexion and extension. [place] Mako robotic arm was then brought in. A straight saw blade was then used for the tibial cut, the anterior femoral cut, the anterior chamfer cut, and the posterior femoral cut. All bony fragments were removed. Saw blade was then switched out and the distal femoral cut as well as the posterior chamfer cut was completed. At this time, medial and lateral menisci were resected as well as any posterior osteophytes. A 4 mm trial tibia was then placed, 5 mm trial femur was placed, and a 4, 10 mm polyethylene trial liner was placed. The patient's knee was brought to full extension and flexion. Varus and valgus stresses were applied, was found to be stable with no instability. No signs of liftoff or loosening were noted. At this time, box cut was completed on the femur. The pins were removed from the femur and the tibia as well as the arrays and the checkpoints. Cement was mixed on the back table. All cut surfaces were irrigated with pulse lavage irrigation with Ancef and then completely dried. Once the cement was ready, the Karthikeyan size 4 mm cemented Clio tibial base plate having been previously stamped and drilled, was then cemented in place on the tibia. The Karthikeyan size 5 mm cemented femur was cemented into place. The patient had a Karthikeyan size 4, 10 mm polyethylene insert placed. The patient's knee was brought to full extension. Excess cement was removed. A Karthikeyan size 29 x 9 mm cemented asymmetric patella was then cemented into place. 1 L of pulse lavage irrigation with Ancef was irrigated through the knee along with 400 mL of Irrisept irrigation. Periarticular injection was completed. Topical tranexamic acid and vancomycin powder were applied. A #2 barbed suture was used for closure of the medial parapatellar arthrotomy in flexion. 2-0 Vicryl and Stratafix were used for subcutaneous closure. Prineo was used for cutaneous closure. The patient had a sterile soft dressing applied. The tibial holes were closed with nylon, and this was also covered with a sterile soft dressing. The patient had an DEEPAK wrap applied and was sent to PACU in stable condition. The patient tolerated the procedure well. MMODAL /[id number]
== END 2021-08-11 14:10 | disposition home or self-care (01) ==
LOC: JD.SDS 09:30
PROVIDERS: ATTEND Orthopaedic Surgery
DX: M17.12 Unilateral primary osteoarthritis, left knee (principal); E03.9 Hypothyroidism, unspecified; I10 Essential (primary) hypertension; E78.00 Pure hypercholesterolemia, unspecified; E11.9 Type 2 diabetes mellitus without complications; E66.9 Obesity, unspecified; E55.9 Vitamin D deficiency, unspecified; Z79.890 Hormone replacement therapy; Z88.5 Allergy status to narcotic agent; Z98.890 Other specified postprocedural states; Z68.42 Body mass index [BMI] 45.0-49.9, adult; Z88.8 Allergy status to other drugs, medicaments and biological substances
CPT/HCPCS: 27447; 73560; 97116; 97161; A9270; C1713; C1776; J0171; J0690; J0697; J1885; J2250; J2270; J2370; J2704; J2795; J3010; J3370; J7120; 01402; 64450; 76942